=== PATIENT | male | born 1965 | race Two or more races ===

== ENCOUNTER 2016-07-20 12:25 | Emergency (ER) | payer SELFPAY ==
[2016-07-20 12:32] VITALS: RESP 18
--- NOTE | 2016-07-20 12:59 | EDPHY ---
H & P Time Seen by Provider: 07/20/16 12:42 HPI/ROS: This is a 48-year-old gentleman presenting to the emergency room, he states he just has not been feeling very well over the past 1-2 weeks. He states about a month ago he may have had the flu took some antibiotics be brought back within from [place], states he did feel a bit better afterwards. But then started to notice he had no energy, decreased appetite with intermittent chills. He does report that he has been under alot of stress with clinical issues going on, family, and his business this could be a component of why he is not feeling good. Denies any chest pain, abdominal pain no nausea vomiting or diarrhea. Patient did express concerns for depression, he states he is not suicidal just feeling depressed. REVIEW OF SYSTEMS: Constitutional: No fever, intermittent chills, decrease in appetite Eyes: No blurred vision ENT: No sore throat Respiratory: No cough or shortness of breath Cardiac: No chest pain Gastrointestinal: No nausea vomiting or abdominal pain Genitourinary: No urinary discomfort Musculoskeletal: No painful with movement Skin: No rash Neurological: No headache or dizziness Psych: Episodes of depression Smoking Status: Never smoked Physical Exam: CONSTITUTIONAL: patient appeared well nourished, non-ill appearing and normally developed. No acute distress. Vital signs as documented. HEENT: NCAT. PERRLA. EOMI. TMs normal bilaterally. Oropharynx normal NECK: Supple, FROM without pain RESP: Non-labored resp effort, airway patent, CTAB CARDIAC: RRR w/o murmur, navi. Normal S1/S2 GI: Abd soft NTTP, no mass NEURO: AAOx3 EXTREMITIES: FROM without pain or difficulty. Positive cms intact SKIN: Warm and dry, no rash LYMPH: No lymphadenopathy PSYCH: flat affect, calm, no distress, Constitutional: Initial Vital Signs Temperature (C) 36.5 C 07/20/16 12:28 Heart Rate 95 07/20/16 12:28 Respiratory Rate 18 07/20/16 12:28 Blood Pressure 146/91 H 07/20/16 12:28 O2 Sat (%) 96 07/20/16 12:28 O2 Delivery Mode Room Air Allergies/Adverse Reactions: pollen extracts Allergy (Verified 07/20/16 12:32) Medical Decision Making ED Course/Re-evaluation: Discussed plan of care: CBC, Chem 7, and urine 1515: Rhianna from [facility] came to speak with patient and give him resources, which patient was requesting. Rhianna stated patient does feel safe to go home 1530: Patient states he was feeling better just after talking with Rhianna. he denies any suicidal ideation or suicidal thoughts just intermittent feelings of depression. patient states he is ready to go home. we did discuss all avenues and resources given to the patient for follow-up, and to speak with a therapist. discharge home---> stable Differential Diagnosis: Differential diagnosis considered but not limited to electrolyte imbalance, influenza, suicidal ideation - Data Points Laboratory Results: Laboratory Results 07/20/16 13:20 07/20/16 13:20 07/20/16 07/20/16 07/20/16 13:47 13:20 13:20 WBC 6.38 10^3/uL 10^3/uL (3.80-9.50) RBC 4.93 10^6/uL 10^6/uL (4.40-6.38) Hgb 12.5 g/dL L g/dL (13.7-17.5) Hct 38.8 % L % (40.0-51.0) MCV 78.7 fL L fL (81.5-99.8) MCH 25.4 pg L pg (27.9-34.1) MCHC 32.2 g/dL L g/dL (32.4-36.7) RDW 12.4 % % (11.5-15.2) Plt Count 382 10^3/uL 10^3/uL (150-400) MPV 9.2 fL fL (8.7-11.7) Neut % (Auto) 72.5 % % (39.3-74.2) Lymph % (Auto) 16.5 % % (15.0-45.0) Robertson % (Auto) 7.8 % % (4.5-13.0) Eos % (Auto) 2.4 % % (0.6-7.6) Baso % (Auto) 0.5 % % (0.3-1.7) Nucleat RBC Rel Count 0.0 % % (0.0-0.2) Absolute Neuts (auto) 4.63 10^3/uL 10^3/uL (1.70-6.50) Absolute Lymphs (auto) 1.05 10^3/uL 10^3/uL (1.00-3.00) Absolute Monos (auto) 0.50 10^3/uL 10^3/uL (0.30-0.80) Absolute Eos (auto) 0.15 10^3/uL 10^3/uL (0.03-0.40) Absolute Basos (auto) 0.03 10^3/uL 10^3/uL (0.02-0.10) Absolute Nucleated RBC 0.00 10^3/uL 10^3/uL (0-0.01) Immature Gran % 0.3 % % (0.0-1.1) Immature Gran # 0.02 10^3/uL 10^3/uL (0.00-0.10) Sodium 135 mEq/L mEq/L (134-144) Potassium 4.3 mEq/L mEq/L (3.5-5.2) Chloride 101 mEq/L mEq/L (97-110) Carbon Dioxide 23 mEq/l mEq/l (22-31) Anion Gap 11 mEq/L mEq/L (8-16) BUN 12 mg/dL mg/dL (7-23) Creatinine 0.7 mg/dL mg/dL (0.7-1.3) Estimated GFR > 60 Glucose 115 mg/dL H mg/dL (70-100) Calcium 9.3 mg/dL mg/dL (8.5-10.4) Urine Color YELLOW Urine Appearance CLEAR Urine pH 6.0 (5.0-7.5) Ur Specific Vivian 1.005 (1.002-1.030) Urine Protein NEGATIVE (NEGATIVE) Urine Ketones NEGATIVE (NEGATIVE) Urine Blood 1+ H (NEGATIVE) Urine Nitrate NEGATIVE (NEGATIVE) Urine Bilirubin NEGATIVE (NEGATIVE) Urine Urobilinogen NEGATIVE EU EU (0.2-1.0) Ur Leukocyte Esterase NEGATIVE (NEGATIVE) Urine RBC 3-5 /hpf H /hpf (0-3) Urine WBC 1-3 /hpf /hpf (0-3) Ur Epithelial Cells TRACE /lpf /lpf (NONE-1+) Urine Bacteria TRACE /hpf H /hpf (NONE SEEN) Urine Mucus TRACE /lpf /lpf (NONE-1+) Ur Culture Indicated? NOT INDICATED (NI) Urine Glucose NEGATIVE (NEGATIVE) Medications Given: Discontinued Medications Hydromorphone HCl (Dilaudid) 1 mg IVP EDNOW ONE Stop: 07/20/16 15:28 Last Admin: 07/20/16 15:32 Dose: Not Given Departure - Departure Disposition: Home, Routine, Self-Care Clinical Impression: Fatigue Qualifiers: Fatigue type: due to depression Qualified Code(s): F32.9 - Major depressive disorder, single episode, unspecified Condition: Good Instructions: Depression (ED), Fatigue (ED) Additional Instructions: 1. Follow up with primary care provider 2. You have been given resources if at any point time you feel that depression is worse than normal please call the crisis hotline 3. We discussed utilizing therapy for stress and anxiety Referrals: NONE *PRIMARY CARE P,. [Primary Care Provider] - As per Instructions [facility],. [Clinic] - As per Instructions
[2016-07-20 13:27] LABS: % IMMATURE GRANULYOCYTES 0.3 % (0.0-1.1); ABSOLUTE IMMATURE GRANULOCYTES 0.02 10^3/uL (0.00-0.10); ADD DIFF? NO; ADD MORPH? NO; ADD SCAN? NO; ATYPICAL LYMPHOCYTE FLAG 10 (0-99); FRAGMENT RBC FLAG 0 (0-99); HEMATOCRIT 38.8 % (40.0-51.0); HEMOGLOBIN 12.5 g/dL (13.7-17.5); LEFT SHIFT FLG 0 (0-99); LIPEMIA HEMOLYSIS FLAG 80 (0-99); MEAN CELL HEMOGLOBIN 25.4 pg (27.9-34.1); MEAN CELL HEMOGLOBIN CONCENTR. 32.2 g/dL (32.4-36.7); MEAN CELL VOLUME 78.7 fL (81.5-99.8); MEAN PLATELET VOLUME 9.2 fL (8.7-11.7); PLATELET CLUMPS FLAG 0 (0-99); PLATELET COUNT 382 10^3/uL (150-400); RED BLOOD CELL COUNT 4.93 10^6/uL (4.40-6.38); RED CELL DISTRIBUTION WIDTH 12.4 % (11.5-15.2)
[2016-07-20 13:39] LABS: ANION GAP 11 mEq/L (8-16); CALCIUM 9.3 mg/dL (8.5-10.4); CARBON DIOXIDE 23 mEq/l (22-31); CHLORIDE 101 mEq/L (97-110); CREATININE 0.7 mg/dL (0.7-1.3); GLOMERULAR FILTRATION RATE > 60; GLUCOSE 115 mg/dL (70-100); POTASSIUM 4.3 mEq/L (3.5-5.2); SODIUM 135 mEq/L (134-144)
[2016-07-20 13:59] LABS: COLOR YELLOW; LEUKOCYTE ESTERASE,URINE NEGATIVE (NEGATIVE); NITRITE,URINE NEGATIVE (NEGATIVE)
[2016-07-20 14:10] LABS: BACTERIA TRACE /hpf (NONE SEEN); MUCUS TRACE /lpf (NONE-1+)
[2016-07-20] MEDS ORDERED: HYDROmorphONE/DILAUDID 1 MG/ML SYR IVP ONE (15:27)
[2016-07-20 16:01] VITALS: BP 123/80; PULSE 76; TEMP 98.8; O2SAT 92
== END 2016-07-20 16:01 | disposition home or self-care (01) ==
DX: F32.9 Major depressive disorder, single episode, unspecified (principal)